=== PATIENT | female | born 1995 | race Two or more races ===

== ENCOUNTER 2020-01-31 12:14 | Outpatient (CLI) | payer OTHER ==
[~2020-01-31] VITALS: Ht 176.5 cm; Wt 106.9 kg
[2020-01-31 12:36] VITALS: BP 121/75
[2020-01-31] MEDS ORDERED: PRENTAB9 PO (12:36)
[2020-01-31] MEDS ORDERED: FERR1TAB8 PO (12:53)
[2020-01-31] MEDS ORDERED: VITA500C24 PO (12:56)
[2020-01-31 13:51] VITALS: BP 127/72
--- NOTE | 2020-03-16 11:50 | HPE ---
DATE OF ADMISSION: 01/31/2020 ADMITTING DIAGNOSIS: This lady is a 24-year-old 1, para 0, last menstrual period (LMP) 04/21/2019, estimated date of confinement (EDC) 01/26/2020 at 41 and 2 with a history of query spontaneous rupture of membranes, no show, no contractions. She is booked for induction of labor 02/02/2020. Risk factors: Body mass index (BMI) is 31.1, depression, GBS positive, had an elevated 1-hour GTT. Labs are O positive, HIV negative, hepatitis negative, RPR negative, rubella immune, Varicella immune. Pap normal. Urine positive. Gonorrhea and chlamydia are negative. One-hour glucose early was 81. One-hour GTT at 28 weeks was 150. Her 3- hour GTT fasting was 88, 1-hour 160, 2-hour 143, and 3-hour 114. Specific gravity in urine was 1010, pH was 5, glucose 50. Blood pressure 121/75, respirations 18, pulse 90, temperature 98.4. Does not appear in distress. Category 1 strip. No contractions. Moderate variability. Baseline was normal. Sterile speculum examination: Cervix was closed. Increased leukorrhea was noted. Nitrazine was negative. A slide was done. There was no bacterial vaginosis (BV), no yeast, no clue cells. An ultrasound was done. The amniotic index (SID) totals 11.81 cm, smallest pocket 2.73 cm. Vertex presenting. Spontaneous movement of the limbs. Spontaneous respirations were noted. Our plan was to discharge with instructions. She has a booked induction of labor 02/02/2020. Patient was discharged undelivered with discharge instructions. [facility]
== END 2020-01-31 14:30 | disposition home or self-care (01) ==
LOC: M LDO 12:14
PROVIDERS: ATTEND Obstetrics & Gynecology
DX: O47.1 False labor at or after 37 completed weeks of gestation (principal); Z3A.41 41 weeks gestation of pregnancy
CPT/HCPCS: 59025; G0378; G0463

== ENCOUNTER 2020-02-02 01:01 | Inpatient (IN) | payer OTHER ==
[2020-02-02] VITALS (23 sets, daily range): BP systolic 107–156; BP diastolic 56–89
[~2020-02-02] VITALS: Ht 175.3 cm; Wt 106.5 kg
[~2020-02-02 01:01] MED LIST: FERR1TAB8 PO; PRENTAB9 PO; VITA500C24 PO
[2020-02-02] MEDS ORDERED: LR 1,000 ML IV SCH (01:49)
[2020-02-02] MEDS ORDERED: LACTATED RINGER'S 1000 ML IV STA (01:49)
[2020-02-02] MEDS ORDERED: PENICILLIN G POTASSIUM IV 5 MU in D5W MINI-BAG PLUS 100 ML IV STA (01:49)
--- NOTE | 2020-02-02 02:05 | HPEPDOC ---
Obstetrical History & Physical General Date of Admission Feb 02, 2020 at 01:45 History of Present Illness Patient is a 24yo at 40.6wks by LMP c/w 9wk US. C/o contractions q4min since 2229. No LOF. No VB. No headaches or visual changes. +FM. 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 History: No pertinent history Past Medical History Medical History none Surgical History: Denies/None Family History Significant Family History: No pertinent family hx Social History Marital Status: Family situation: Spouse/partner home Psychosocial History: Depression * Smoker: non-smoker Alcohol: Denies Drugs: denies Abuse Violence Screening Have you been hit/kicked/slapp: No Have you been sexually assault: No Imunizations Tdap status: current Influenza Status: current Allergies Coded Allergies: No Known Allergies (Verified Allergy, Unknown, 01/31/20) Medications Scheduled Ascorbic Acid (Vitamin C) 500 Mg Capsule, 1 CAP PO BID Ferrous Sulfate (Ferrous Sulfate) 325 Mg Tablet, 1 TAB PO BID No.137/Iron/Folic Acd ( Vitamin Tablet) 1 Each Tablet, 1 TAB PO DAILY Physical Examination Physical Examination GENERAL: Alert and oriented times three. BREAST: . ABDOMEN: Gravid and non-tender to touch. FETUS: Is vertex (VTX) by sterile vaginal examination (SVE). HEART RATE: Regular rate and rhythm. LUNGS: Clear to auscultation (CTA). EXTREMITIES: No edema. Vital Signs/I&O Vital Signs Date Time Temp Pulse Resp B/P (MAP) Pulse Ox O2 Delivery O2 Flow Rate FiO2 02/02/20 01:11 78 142/81 (101) Laboratory Data 24H LABS Laboratory Tests 2 02/02/20 01:50: Serology Scanned Report Hepatitis B Testing CBC/BMP 10.7/32.8/183 Urine Culture: No Growth Pertinent Laboratoy Data Blood Type: O+ RBC Antibody Screen: Negative HIV: Negative Hepatitis B: Negative Rapid Plasma Reagin: Nonreactive Rubella: Immune Varicella: Immune Chlamydia/Gonorrhea: Negative Group B Streptococcus: Positive Cystic Fibrosis: Negative Glucose Tolerance Test: 150 (88/160/143/114) Anatomy Ultrasound Ultrasound Date: Jul 23, 2019 Placenta Location: Posterior Normal Anatomy: Yes Placenta Previa: No Estimated Weight (grams): 369 Steroid Therapy Steroid Therapy: No Vaginal Examination Dilation: 4 cm Effacement: 80% Station: -2 Presentation: Cephalic presentation Assessment Heart Rate (FHR): 120 Variability: Moderate Accelerations: Positive Decelerations: None Tocometer Contractions: Yes Frequency: every 1-5 min. Multi-drug resistant Organism: No history of MDRO Assessment/Plan Assessment Patient is a 24yo at 40.6wks by LMP c/w 9wk US. Admit for labor and expect delivery by . Pain management per patient preference, which was discussed with her. I discussed risks of with patient of failure with section, distress, bleeding, infection, , vaginal or perineal or neighboring organ tear. Currently, fetus is reassuring. GBS is positive, will need for antibiotics. Plan Admit and orient. [employer] Agent and consent. Diet: clear. Group B Streptococcus (GBS) positive. Labs and intravenous (IV) per unit protocol. Counseled on Pitocin augmentation. Lactated Ringers (LR): Bolus 500 mL, then at 125 mL/hr. Anticipate normal spontaneous delivery (). C-S as appropriate. Pain management per patient desire. Anisha Edward MD Feb 02, 2020 02:05
[2020-02-02] MEDS ORDERED: OXYTOCIN 30 UNITS IN 0.9% NaCl 500ML IV BAG (J2590) As Ordered ONE (02:32)
[2020-02-02 02:43] LABS: BASO % 0.2 % (0.0-1.0); EOS % 0.1 % (0.0-3.0); HEMATOCRIT 35.6 % (36.0-47.0); HEMOGLOBIN 11.9 g/dl (12.0-15.5); LYMPH # 1.6 10^3/uL (1.5-5.0); LYMPH % 12.9 % (24.0-44.0); MEAN CORPUSCULAR HEMOGLOBIN 25.6 pg (27.0-33.0); MEAN CORPUSCULAR HGB CONC 33.4 g/dl (32.0-36.5); MEAN CORPUSCULAR VOLUME 76.6 fl (80.0-96.0); MONO # 0.7 10^3/uL (0.0-0.8); NEUTROPHILS # 9.7 10^3/uL (1.5-8.5); NEUTROPHILS % 80.5 % (36.0-66.0); PLATELET COUNT, AUTOMATED 176 10^3/uL (150-450); RED BLOOD COUNT 4.65 10^6/uL (4.00-5.40)
[2020-02-02] MEDS ORDERED: FENTANYL 2MCG/ML ROPIVACAINE 0.2% IN 0.9% NACL 100ML IVBAG As Ordered ONE (02:57)
[2020-02-02] MEDS ORDERED: diphenhydrAMINE 50MG/ML VIAL (J1200) IV PRN (03:10)
[2020-02-02] MEDS ORDERED: ONDANSETRON 4MG/2ML VIAL IV PRN (03:10)
[2020-02-02] MEDS ORDERED: ePHEDrine SULFATE 25 MG/5 ML(5MG/ML) SYRINGE IV PRN (03:10)
[2020-02-02] MEDS ORDERED: EPIDURAL/PCA KEYS XX PRN (03:10)
[2020-02-02] MEDS ORDERED: FENTANYL/ROPIVACAINE/NACL BAG 100 ML EPIDURAL SCH (03:10)
[2020-02-02] MEDS ORDERED: NALOXONE INJ 0.4MG/1ML VIAL (J2310 PER 1MG) IV PRN (03:10)
[2020-02-02] MEDS ORDERED: REFRIGERATOR IV KEYS XX PRN (03:10)
[2020-02-02] MEDS ORDERED: EPIDURAL COMMENT XX SCH (03:10)
[2020-02-02] MEDS ORDERED: LACTATED RINGER'S 1000 ML IV PRN (03:10)
[2020-02-02] MEDS ORDERED: PENICILLIN G POTASSIUM IV 2.5 MU in IV 1 EA IV SCH (06:00)
[2020-02-02 07:54] LABS: CORD GAS ABE V -7.5; CORD GAS HCO3 V 18.9 MEQ/L; CORD GAS PCO2 V 41.8 mmHg; CORD GAS PH V 7.274 UNITS; CORD GAS PO2 V 36.4 mmHg; CORD GAS TCO2 V 20.2 MEQ/L
[2020-02-02 07:55] LABS: CORD GAS O2 SAT V 75.5 %
--- NOTE | 2020-02-02 07:55 | DNPDOC ---
[facility] Delivery Note Delivery Note DATE OF DELIVERY: 02/02/2020 PREDELIVERY DIAGNOSIS: 41-0/7 weeks' gestation and labor. POST DELIVERY DIAGNOSIS: Delivered. PROCEDURE: Spontaneous vaginal delivery. CONTROLS OPERATOR MOLDED GOODS: Dr. Anisha Edward ANESTHESIA: Epidural. ESTIMATED BLOOD LOSS: 100 mL. FINDINGS: 9 pound 0 ounce 4080gm boy , Score 8/9, nuchal cord times 1. DELIVERY SUMMARY: Patient is a 24-year-old 1 now para 1 who was admitted to labor and delivery for active labor for 9hours. Patient SROM clear around 2300. Baby boy head was delivered with Ritkens maneuver due to FHTs in 70s without difficulty over intact perineum in VESNA position at 0715. The nose and mouth were bulb suctioned. x1 nuchal cord was noted with true knot. The shoulders were then delivered without difficulty. was handed to peds. C ord was then clamped x2 and cut after pulsation. Pitocin bolus was started. Perineum and vagina was inspected and found to have a left vaginal laceration. This was repaired with 2-0 chromic. The placenta was then delivered at 0730 spontaneously intact. Cord had a 3 vessel cord. EBL was 100mL. The vagina and perineum were reinspected and no further lacerations were found and hemostasis was good. Fundus was firm. Patient tolerated delivery well. Anisha Edward MD Feb 02, 2020 07:55
[2020-02-02 07:57] LABS: CORD GAS ABE A -9.3; CORD GAS HCO3 A 18.8 MEQ/L; CORD GAS O2 SAT A 62.2 %; CORD GAS PCO2 A 48.7 mmHg; CORD GAS PH A 7.205 UNITS; CORD GAS PO2 A 30.6 mmHg; CORD GAS SBC A 16.4 MEQ/L; CORD GAS TCO2 A 20.3 MEQ/L
[2020-02-02] MEDS ORDERED: DIBUCAINE 1% OINTMENT 30GM TOP PRN (08:00)
[2020-02-02] MEDS ORDERED: MOM 30ML SUSPENSION UDC PO PRN (08:00)
[2020-02-02] MEDS ORDERED: ACETAMINOPHEN 500 MG TAB PO PRN (08:00)
[2020-02-02] MEDS ORDERED: MEASLES,MUMPS,RUBELLA VACCINE INJ (MMR-II) (90707) SC SCH (08:00)
[2020-02-02] MEDS ORDERED: ANUSOL HC CREAM 30GM TOP PRN (08:00)
[2020-02-02] MEDS ORDERED: METHYLERGONOVINE MALEATE 0.2 MG TAB PO PRN (08:00)
[2020-02-02] MEDS ORDERED: RHOGAM 300 MCG (1500 IU) INJ (J2790) IM SCH (08:00)
[2020-02-02] MEDS ORDERED: OXYTOCIN DRIP 30 UNITS in IV 1 EA IV SCH (08:15)
[2020-02-02] MEDS: PRENATAL VITAMINS CHEWABLE TABLET PO SCH (08:23)
[2020-02-02] MEDS: DOCUSATE SODIUM 100 MG CAP PO SCH ×2 (10:43→21:15)
[2020-02-02] MEDS: IBUPROFEN 800 MG TAB PO PRN ×2 (10:43→21:15)
--- NOTE | 2020-02-03 04:24 | IPNPDOC ---
Progress Note Date of Service: Feb 03, 2020 Day#: 1 Progress Note SUBJECT: Patient is a 24-year-old 1 now Para 1 status post uncomplicated spontaneous vaginal delivery with post left vaginal laceration and repair, doing well day # 1. She has been ambulating, voiding spontaneously without issue and tolerating regular diet. Breast feeding without issue. Reports lochia is like a normal period. Patient is ambulating well. Reports some cramping with . Has mild pain. OBJECTIVE: VITAL SIGNS: Within normal limits, afebrile. GENERAL: No acute distress HEENT: MMM BREAST: Nontender, no erythema CARDIOVASCULAR EXAMINATION: RRR RESPIRATORY EXAMINATION: Bilaterally clear ABDOMINAL EXAMINATION: Soft, appropriate tenderness, nondistended, fundus -2 PERINEUM: Intact, minimal lochia EXTREMITIES: no edema, nontender ASSESSMENT: Patient is a 24-year-old 1 now Para 1 status post uncomplicated spontaneous vaginal delivery with post left vaginal laceration and repair, doing well day # 1 around 0700. Vitals within normal limits, afebrile, hemodynamically stable with no evidence of infection. PLAN: 1. Continue care. 2. Tylenol and Motrin for pain. 3. Encourage breast feeding and ambulation. VS, I&O, 24H, Fishbone Vital Signs/I&O Vital Signs Date Time Temp Pulse Resp B/P (MAP) Pulse Ox O2 Delivery O2 Flow Rate FiO2 02/02/20 04:04 98.0 68 145/89 (107) Laboratory Data 24H LABS Laboratory Tests 2 02/02/20 01:50: Serology Scanned Report Hepatitis B Testing 02/02/20 02:20: Immature Granulocyte % (Auto) 0.3, Neutrophils (%) (Auto) 80.5H, Lymphocytes (%) (Auto) 12.9L, Monocytes (%) (Auto) 6.0H, Eosinophils (%) (Auto) 0.1, Basophils (%) (Auto) 0.2, Neutrophils # (Auto) 9.7H, Lymphocytes # (Auto) 1.6, Monocytes # (Auto) 0.7, Eosinophils # (Auto) 0.0, Basophils # (Auto) 0.0, Nucleated Red Blood Cells % (auto) 0.0 CBC/BMP Laboratory Tests 02/02/20 02:20 Anisha Edward MD Feb 02, 2020 07:42
[2020-02-03 06:00] VITALS: BP 108/58
[2020-02-03 07:10] VITALS: BP 108/58
[2020-02-03] MEDS: DOCUSATE SODIUM 100 MG CAP PO SCH ×2 (07:16→20:43)
[2020-02-03] MEDS: PRENATAL VITAMINS CHEWABLE TABLET PO SCH (07:16)
[2020-02-03] MEDS: IBUPROFEN 800 MG TAB PO PRN ×2 (07:17→20:43)
[2020-02-03 18:00] VITALS: BP 130/64
[2020-02-04 06:00] VITALS: BP 117/63
--- NOTE | 2020-02-04 06:06 | OBDS ---
[facility] Obstetrical Discharge Sum. Obstetrical Discharge Summary Date: Feb 04, 2020 : 1 Term: 1 Livin VDRL: Non-Reactive Rh: Negative Rubella: Immune Labor active Delivery Sex: Male Weight: grams (4080) Anesthesia: Regional Anesthesia Episiotomy left vaginal laceration A/P, Post Course List any complications Admission diagnosis: Active Labor, Term Discharge diagnosis: Active Labor, Term Condition at Discharge: Stable Discharge Instructions: Home Activity: Ad rody with pelvic rest Diet: Regular Medications: As received during 36wk visit Follow-up: 6wks Other: None HOSPITAL COURSE: Patient was admitted for labor at 40w6d . She had an uncomplicated . Her course was uncomplicated with normal lochia, pain and spontaneous voiding. She ambulated and ate without difficulty. support given Anisha Edward MD Feb 02, 2020 07:56 MARLEY CULVER DO Feb 04, 2020 06:06
--- NOTE | 2020-02-04 06:12 | IPNPDOC ---
Progress Note Date of Service: Feb 04, 2020 Day#: 2 Progress Note SUBJECT: 24-year-old status post uncomplicated spontaneous vaginal delivery at 41+0 weeks over left vaginal laceration doing well day #2. She has been ambulating, voiding spontaneously without issue and tolerating regular diet. She reports is going ok but has had to supplement with formula due to not making diaper counts. Reports lochia is decreasing. Patient is ambulating well. Reports pain is controlled with pain meds. Voiding without difficulty. OBJECTIVE: VITAL SIGNS: Within normal limits, afebrile. Alert and oriented times three. RESP: no exaggerated respiratory effort appreciated CARDS: well-perfused Abdomen: Fundus firm at U-1. Soft, NTTP. : small lochia, mild edema Ext: +1/4 pitting pedal edema, no calf tenderness ASSESSMENT: 24-year-old 1 now Para 1 status post uncomplicated s pontaneous vaginal delivery after presenting in active labor doing well on day 2. Vitals within normal limits, afebrile, hemodynamically stable with no evidence of infection. PLAN: 1. Discharge to home today. 2. Tylenol and Motrin for pain. 3. Encourage breast feeding, support PRN. 4. Encourage ambulation OOB as tolerated, regular diet as tolerated 5. Routine PP visit in 6 weeks in clinic. 6. Discussed return precautions at length. VS, I&O, 24H, Fishbone Vital Signs/I&O Vital Signs Date Time Temp Pulse Resp B/P (MAP) Pulse Ox O2 Delivery O2 Flow Rate FiO2 02/03/20 18:00 98.3 86 18 130/64 (86) 96 Room Air MARLEY CULVER DO Feb 04, 2020 06:12
[2020-02-04 09:30] VITALS: BP 117/63
[2020-02-04] MEDS: DOCUSATE SODIUM 100 MG CAP PO SCH (09:48)
[2020-02-04] MEDS: PRENATAL VITAMINS CHEWABLE TABLET PO SCH (09:48)
[2020-02-04] MEDS: IBUPROFEN 800 MG TAB PO PRN (10:33)
--- NOTE | 2020-03-20 15:14 | IPN ---
DATE: 02/03/2020 This patient requested circumcision of her male . After discussing the risks and benefits of circumcision, the medical to non-medical indications of penile block and aftercare, expressed understanding of penile block and aftercare and bleeding, signed the consent form. All questions were answered. 20 minute discussion. We await clearance by the optometrist assistant. DRU
== END 2020-02-04 12:45 | disposition home or self-care (01) | DRG 807 ==
LOC: M LDO 01:01 → M LDI 01:45 → M OBS 10:30
PROVIDERS: ADMIT Obstetrics & Gynecology; ATTEND Obstetrics & Gynecology
PROC: 10E0XZZ Delivery of Products of Conception, External Approach (ICD-10-PCS; principal; 2020-02-02)
PROC: 0HQ9XZZ Repair Perineum Skin, External Approach (ICD-10-PCS; 2020-02-02)
DX: O48.0 Post-term pregnancy (principal); Z37.0 Single live birth; Z3A.40 40 weeks gestation of pregnancy; O99.284 Endocrine, nutritional and metabolic diseases complicating childbirth; O70.0 First degree perineal laceration during delivery

== ENCOUNTER → 2020-04-28 | Outpatient (CLI) | payer SELFPAY | LOC: M LABSMTC 12:55 | PROVIDERS: ATTEND Pediatrics | DX: Z20.828 Contact with and (suspected) exposure to other viral communicable diseases (principal) ==